=== PATIENT | male | born 1965 | race Caucasian/White ===

== ENCOUNTER 2016-06-25 12:43 | Day surgery (SDC) | payer OTHER ==
[2016-06-24 11:57] VITALS: BMI 28.9
[2016-06-25] VITALS (11 sets, daily range): BP systolic 112–141; BP diastolic 71–95; PULSE 70–76; RESP 11–23; Ht 172.7 cm; Wt 85.0 kg
[~2016-06-25] VITALS: Ht 172.7 cm; Wt 85.0 kg
[~2016-06-25 12:43] MED LIST: ACETAMINOPHEN 1000 MG/100 ML IVPB ONE; CIPROFLOXACIN 400 MG in D5W 200 ML IVPB ONE; SOD CHLORIDE 0.9% 1,000 ML IV SCH
[2016-06-25] MEDS ORDERED: BUPIVACAINE 0.25% (MPF) 30 ML INJ ONE (15:02)
[2016-06-25] MEDS ORDERED: PROPOFOL 20 ML ONE (15:04)
[2016-06-25] MEDS ORDERED: CLINDAMYCIN 900 MG/D5W (PMX) 0 ML IVPB ONE (15:04)
[2016-06-25] MEDS ORDERED: CIPROFLOXACIN 400MG/D5W 200 ML ONE (15:25)
[2016-06-25] MEDS ORDERED: METOCLOPRAMIDE 10 MG INJ IV PRN (15:30)
[2016-06-25] MEDS ORDERED: morphine (1 MG/ML) 10ML SYRINGE IV PRN ×3 (15:30)
[2016-06-25] MEDS ORDERED: DIPHENHYDRAMINE 50 MG INJ IV PRN (15:30)
[2016-06-25] MEDS ORDERED: MEPERIDINE 25 MG INJ IV PRN (15:30)
[2016-06-25] MEDS ORDERED: HYDROmorphONE (0.2 MG/ML) 10ML SYG IV PRN ×3 (15:30)
[2016-06-25] MEDS ORDERED: ONDANSETRON 4 MG INJ IV PRN (15:30)
[2016-06-25] MEDS ORDERED: FENTAnyl 50 MCG/ML VIAL IV PRN ×2 (15:30)
[2016-06-25] MEDS ORDERED: ONDANSETRON 4 MG INJ ONE (15:53)
[2016-06-25] MEDS ORDERED: KETOROLAC 30 MG INJ ONE (15:53)
[2016-06-25] MEDS ORDERED: METOCLOPRAMIDE 10 MG INJ ONE (15:53)
[2016-06-25] MEDS ORDERED: DEXAMETHASONE 4 MG/ML 1 ML INJ ONE (15:54)
[2016-06-25] MEDS ORDERED: HYDROCODONE/APAP (5/325) TAB PO ONE (16:30)
[2016-06-25] MEDS: FENTAnyl 50 MCG/ML VIAL IV PRN ×2 (16:44→16:52)
--- NOTE | 2016-06-25 17:20 | OPR ---
DATE OF OPERATION: 06/25/2016 INDICATION: This is a 50-year-old male with a right inguinal hernia and right hydrocele. He reques ts surgical repair. Risks, alternatives, benefits, and personnel were discussed with the patient. Patient expressed understanding and consents to the operation. PREOPERATIVE DIAGNOSES: Right inguinal hernia and hydrocele. POSTOPERATIVE DIAGNOSES: Right inguinal hernia and hydrocele. OPERATION PERFORMED: 1. Right inguinal hernia repair with large size Ultrapro hernia system mesh. 2. Right hydrocelectomy. SURGEON: Esdras Carlson MD SPECIMENS: None. COMPLICATIONS: None. ANESTHESIA: General. DESCRIPTION OF PROCEDURE: The patient was taken to the OR and prepped and draped in usual sterile f ashion. Surgical timeout was performed. IV antibiotics were given. Right inguinal oblique incisio n is made with a 10 blade. Dissection cautery was carried down to external oblique fascia, which wa s opened with a 15 blade. This incision is extended medial inferiorly and lateral superiorly with M etzenbaum scissors. Cord structures were identified and encircled with a Perry drain. Hydrocele was then managed by bringing up the testicle to the surgical field. The hydrocele was opened with c autery, the fluid was suctioned out. The hydrocele sac was excised and also marsupialized with inte rrupted 3-0 Vicryl. Indirect hernia was identified and reduced and buttressed with the distal porti on of the Ultrapro hernia system mesh after the testicle was repositioned back into the sac. 0 Prol petros is used for the pubic tubercle along the shelving edge of the inguinal ligament in a running fas hion. This portion is secured to the internal oblique with interrupted 3-0 Vicryl. Onlay mesh is s ecured in a similar fashion with a running 0 Prolene from the pubic tubercle along the shelving edge of the inguinal ligament. Straps are created and reapproximated with interrupted 0 Prolene to recr eate the inguinal ring. Onlay mesh was secured to the internal oblique with interrupted 3-0 Vicryl. External oblique fascia was closed with running 3-0 Vicryl. Carmela's was closed with interrupted 3-0 Vicryl. Skin was closure with interrupted 3-0 Vicryl and running 4-0 Monocryl. Local anesthesi a was injected. Dry dressings were applied. Dictated By: ESDRAS ECKERT/TIA Conf#: [id number] DID#: [id number]
== END 2016-06-25 17:40 | disposition home or self-care (01) ==
LOC: SDS 12:43
PROVIDERS: ATTEND Surgery
DX: K40.90 Unilateral inguinal hernia, without obstruction or gangrene, not specified as recurrent (principal); N43.3 Hydrocele, unspecified; F17.200 Nicotine dependence, unspecified, uncomplicated
CPT/HCPCS: 49505; C1781; J0131; J0744; J1100; J1885; J2405; J2765; J3010; Z7512; Z7610